=== PATIENT | female | born 1995 | race Caucasian/White ===

== ENCOUNTER 2019-02-08 07:19 | Day surgery (SDC) | payer BC, OTHER, MEDICAID ==
[~2019-02-08] VITALS: Ht 160 cm; Wt 119.3 kg
[2019-02-08 08:10] LABS: HEMATOCRIT 39.1 % (36.0-48.0); HEMOGLOBIN 13.4 g/dL (12-16); MCH 29.3 pg (26.0-34.0); MCHC 34.3 g/dL (31.0-37.0); MCV 85.6 fL (80.0-100.0); MEAN PLATELET VOLUME 11.4 fL (7.4-10.4); RBC 4.57 10x6/uL (4.00-5.40); RDW 12.4 % (11.5-14.5); WBC 8.4 10x3/uL (4.8-10.8)
[2019-02-08 09:14] VITALS: BP 118/59; Ht 160 cm; Wt 119.3 kg
[2019-02-08 09:24] LABS: HCG URINE NEGATIVE (NEGATIVE)
[2019-02-08] MEDS ORDERED: HYDROCODON-ACE1 EAC7 PO (12:19)
--- NOTE | 2019-02-08 13:48 | NUR ---
DISCHAGE INSTRUCTIONS GIVEN AND REVIEWED WITH MOTHER AND PT PT IV FLUSHED WELL. TOLERATING LIQUIDS. DENIES PAIN OR NAUSEA.
== END 2019-02-08 14:35 | disposition home or self-care (01) ==
LOC: D.OPS 07:19 → EDBD 12:30 → D.OPS 12:30
PROVIDERS: Anesthesiology; ATTEND Surgery
DX: K80.10 Calculus of gallbladder with chronic cholecystitis without obstruction (principal); E66.01 Morbid (severe) obesity due to excess calories; Z68.42 Body mass index [BMI] 45.0-49.9, adult; F17.200 Nicotine dependence, unspecified, uncomplicated; Z01.812 Encounter for preprocedural laboratory examination